=== PATIENT | male | born 1940 | race Caucasian/White ===

== ENCOUNTER 2023-06-08 08:55 | Day surgery (SDC) | payer OTHER ==
--- NOTE | 2023-06-08 12:30 | RAD REPORT ---
EXAM DESCRIPTION: US - Thoracentesis w/ US Guide - 06/08/2023 12:23 pm CLINICAL HISTORY: Pleural effusion. PE COMPARISON: No comparisons FINDINGS: Preoperative diagnosis: Right pleural effusion Post operative diagnosis: Same Conscious Sedation: None. Estimated blood loss: Minimal Specimens:A small volume of fluid was sent for requested lab studies. 1400 mL was aspirated. Imaging: Ultrasound Complications: None IMPRESSION: Successful ultrasound-guided right-sided thoracentesis as detailed.
--- NOTE | 2023-06-08 12:36 | RAD REPORT ---
EXAM DESCRIPTION: RAD - Chest Single View - 06/08/2023 12:27 pm CLINICAL HISTORY: Status Post Thorocentesis COMPARISON: Chest Pa And Lat (2 Views) dated 06/06/2023; Chest Pa And Lat (2 Views) dated 03/26/2023; Thorax Wo Con dated 10/26/2021 FINDINGS: Status post right-sided thoracentesis. Decreased right pleural fluid. There is still resid ual opacities at the right lung base. This could be physical pleural fluid, scarring, consolidation, or atelectasis. Left lung is clear. Heart size is enlarged . IMPRESSION: Status post right-sided thoracentesis. No pneumothorax. Residual right basilar opacity c ould be a combination of factors including some residual pleural fluid, scarring/atelectasis, or unde rlying consolidative process. Correlate with thoracentesis fluid including cytology.
[2023-06-08 13:30] LABS: Appearance CLEAR (CLEAR); Body Fluid Source PLEURAL; Color of fluid Yellow (COLORLESS)
[2023-06-08 13:31] LABS: Body Fluid WBC 337 /mm^3
[2023-06-08 14:56] VITALS: BP 144/75; TEMP 96.7; O2SAT 93
--- NOTE | 2023-06-08 15:30 | RAD REPORT ---
EXAM DESCRIPTION: [place] Single View06/08/2023 3:09 pm CLINICAL HISTORY: Right thoracentesis IMPRESSION: A right pneumothorax is not present status post thoracentesis
[2023-06-12 07:10] LABS: TOTAL PROTEIN, PLEURAL FLUID 5.2 g/dL
== END 2023-06-08 15:35 | disposition home or self-care (01) ==
LOC: DS 08:55
PROVIDERS: ATTEND Internal Medicine Sleep Medicine
PROC: 0W993ZX Drainage of Right Pleural Cavity, Percutaneous Approach, Diagnostic (ICD-10-PCS; principal; 2023-06-08)
DX: J90 Pleural effusion, not elsewhere classified (principal)
CPT/HCPCS: 32555; 36415; 71045; 82945; 83615; 84157; 84311; 85730; 87015; 87070; 87102; 87116; 87206; 88108; 88305; 89050

== ENCOUNTER → 2023-11-05 | Emergency (ER) | payer OTHER ==
--- NOTE | 2023-11-05 16:16 | RAD REPORT ---
EXAM DESCRIPTION: CT - Thorax Wo Con - 11/05/2023 3:38 pm CLINICAL HISTORY: sob COMPARISON: 2021 TECHNIQUE: Computed axial tomography of the chest was obtained. Contrast was not requested. All CT scans are performed using dose optimization technique as appropriate and may include automated exposure control or mA/KV adjustment according to patient size. FINDINGS: The evaluation of mediastinum, jose f and vessels is limited secondary to lack of IV contras t administration. Moderate loculated right pleural effusion with a thickened wall. Catheter enters the right lateral lower chest into the pleural fluid. It extends superiorly and anter iorly. There is little fluid adjacent to the tip of the catheter. Right lung opacities right lung volume loss is present. Left lung is clear. No mediastinal or hilar lymphadenopathy noted. Lytic lesions are present within 2 thoracic vertebral bodies unchanged from prior exam. Given the lac k of change incised these may represent hemangiomas. Further evaluation with nonemergent MRI thoracic spine could be obtained IMPRESSION: Tip of a right pleural catheter lies within the anterior superior right pleural space. T here is little fluid surrounding the tip of the catheter. Moderate loculated right pleural effusion with a thickened wall. Opacities right lower lobe probably atelectasis. Additional right lung opacities could represent pneu monia or atelectasis
--- NOTE | 2023-11-05 16:21 | RAD REPORT ---
EXAM DESCRIPTION: [place] Pa And Lat (2 Views)11/05/2023 3:27 pm CLINICAL HISTORY: Shortness of breath COMPARISON: September 2023 FINDINGS: The opacification of the right hemithorax represents a combination of loculated pleural ef fusion and atelectasis. There may be additional pneumonia present. Right lung volume loss Tip of a pleural catheter upper right hemithorax Left lung appears clear. Heart is normal size
--- NOTE | 2023-11-05 16:42 | EDPHYS ---
Physician Documentation [facility] Name: Anders Melendez Age: 83 yrs Sex: Male : 1940 Arrival Date: 11/05/2023 Time: 14:21 Bed 2 Private MD: Julio Mccrary V ED Physician Cole Cordero HPI: 11/04 15:22 This 83 yrs old Male presents to ER via Wheelchair with complaints of PleurX catheter rn problem. 15:22 The patient has shortness of breath with light activity, during heavy activity. Onset: rn The symptoms/episode began/occurred at an unknown time. The patient's shortness of breath is aggravated by exertion. Severity of symptoms: At their worst the symptoms were mild in the emergency department the symptoms are unchanged. The patient has experienced similar episodes in the past. Patient reports has had Pleurx catheter since July after diagnosed with mesothelioma and pleural effusion. Is undergoing chemo with last chemo last week. Denies any fever. Main complaint is that Pleurx catheter has not drained much in the last 2 months. Had imaging done as outpatient last week but does not know results. Reports slowly increasing short of breath over time. No hemoptysis.. Historical: - Allergies: 14:52 Codeine; kd3 - Immunization history:: Adult Immunizations up to date. - Social history:: Smoking status: Patient denies any tobacco usage or history of. - Family history:: not pertinent. - Hospitalizations: : No recent hospitalization is reported. ROS: 15:22 Constitutional: Negative for fever, chills, and weight loss, Cardiovascular: Negative rn for chest pain, palpitations, and edema, Respiratory: Positive for shortness of breath Abdomen/GI: Negative for abdominal pain, nausea, vomiting, diarrhea, and constipation, MS/Extremity: Negative for injury and deformity, Skin: Negative for injury, rash, and discoloration, Neuro: Negative for headache, weakness, numbness, tingling, and seizure, Exam: 15:22 Constitutional: This is a well developed, well nourished patient who is awake, alert, rn and in no acute distress. Head/Face: Normocephalic, atraumatic. Cardiovascular: Tachycardic, regular. No pulse deficits. Respiratory: Mild tachypnea. Speaking full sentences. Abdomen/GI: Soft, non-tender Vital Signs: 14:48 BP 112 / 62; Pulse 101; Resp 17; Temp 98.4(O); Pulse Ox 98% ; Weight 90.72 kg; kd3 17:14 BP 134 / 69; Pulse 92; Resp 18; Pulse Ox 97% on R/A; Pain 0/10; ld1 19:40 BP 110 / 58; Pulse 93; Resp 18; Pulse Ox 97% on R/A; Pain 0/10; nj1 20:32 Temp 98.2(O); nj1 17:14 Pain Scale: Adult ld1 19:40 Pain Scale: Adult nj1 MDM: 14:31 Patient medically screened. rn 16:32 Counseling: I had a detailed discussion with the patient and/or guardian regarding the rn historical points, exam findings, and any diagnostic results supporting the discharge/admit diagnosis, radiology results, the need to transfer to another facility, for higher level of care, [facility] does not immediately have the required specialist. ED course: Consulted with Dr. Roibns, states nose fluid is loculated and recommends transfer to [facility] as we cannot do anymore for this gentleman here. Patient denies fever or infectious symptoms. No new cough. Doubtful that the finding is pneumonia, most likely compressive atelectasis from effusion. Transfer to [facility] initiated. 16:39 Differential diagnosis: pneumonia, Pneumothorax loculated effusion. Data reviewed: rn vital signs, nurses notes, radiologic studies, CT scan, plain films, and as a result, I will admit patient. Consideration of Admission/Observation Patient was admitted/placed on observation. Escalation of care including admission/observation considered. 11/04 15:04 Order name: XRAY Chest Pa And Lat (2 Views); Complete Time: 16:22 rn 11/04 15:21 Order name: CT Chest Wo Con; Complete Time: 16:22 rn Administered Medications: No medications were administered Disposition Summary: 11/05/23 16:42 Transfer Ordered Notes: Transfer Location: [facility] rn Reason: Higher level of care rn Condition: Stable rn Problem: an ongoing problem rn Symptoms: have worsened rn Accepting Physician: Dr. Snowden(11/05/23 20:27) as6 Diagnosis - Pleural effusion, not elsewhere classified - Loculated rn - Dyspnea, unspecified rn Forms: - Medication Reconciliation Form rn - SBAR form rn Signatures: Dispatcher [employer] Cole Walden MD MD rn Slawson, Ashby, RN RN as6 Teresa Zuleta RN RN kd3 Corrections: (The following items were deleted from the chart) 14:53 14:52 Allergies: No Known Allergies; kd3 kd3 20:27 16:42 Dr. Snowden rn as6
--- NOTE | 2023-11-05 16:42 | ER ---
Nurse's Notes [facility] Name: Anders Melendez Age: 83 yrs Sex: Male : 1940 Arrival Date: 11/05/2023 Time: 14:21 Bed 2 Private MD: Julio Mccrary V Diagnosis: Pleural effusion, not elsewhere classified-Loculated;Dyspnea, unspecified Presentation: 11/04 14:49 Chief complaint: Patient states: I have a right pleur X catheter that will not drain. I kd3 had a CT scan done and i am not sure what that scan said. I could not get IT has been almost 2 moths since it has drained. I do not have any pain right now but i am very short of breath. I just cannot get my doctor to take care of it so i am here trying to get it taken care of. Coronavirus screen: Vaccine status: Patient reports receiving the 2nd dose of the covid vaccine. Ebola Screen: No symptoms or risks identified at this time. Initial Sepsis Screen: Does the patient meet any 2 criteria? No. Patient's initial sepsis screen is negative. Does the patient have a suspected source of infection? No. Patient's initial sepsis screen is negative. Risk Assessment: Do you want to hurt yourself or someone else? Patient reports no desire to harm self or others. Onset of symptoms was November 05, 2023. 14:49 Method Of Arrival: Wheelchair kd3 14:49 Acuity: AIMEE 3 kd3 Triage Assessment: 14:52 General: Appears in no apparent distress. Behavior is calm, cooperative. Pain: Denies kd3 pain. Historical: - Allergies: 14:52 Codeine; kd3 - Immunization history:: Adult Immunizations up to date. - Social history:: Smoking status: Patient denies any tobacco usage or history of. - Family history:: not pertinent. - Hospitalizations: : No recent hospitalization is reported. Screenin:14 [facility] ED Fall Risk Assessment (Adult) History of falling in the last 3 months, ld1 including since admission No falls in past 3 months (0 pts). Abuse screen: Denies threats or abuse. Denies injuries from another. Nutritional screening: No deficits noted. Tuberculosis screening: No symptoms or risk factors identified. Assessment: 17:14 General: Appears in no apparent distress. comfortable, Behavior is calm, cooperative, ld1 appropriate for age. Pain: Denies pain. Neuro: Level of Consciousness is awake, alert, obeys commands, Oriented to person, place, time, situation. Cardiovascular: Capillary refill < 3 seconds Patient's skin is warm and dry. Respiratory: Airway is patent Respiratory effort is even, unlabored. GI: Abdomen is round non-distended. : No signs and/or symptoms were reported regarding the genitourinary system. EENT: No signs and/or symptoms were reported regarding the EENT system. Derm: No signs and/or symptoms reported regarding the dermatologic system. Musculoskeletal: No signs and/or symptoms reported regarding the musculoskeletal system. 17:14 Reassessment: Pt reports pleural catheter being clogged. Denies Pain. ld1 19:44 Reassessment: Patient appears in no apparent distress at this time. Patient and/or nj1 family updated on plan of care and expected duration. Pain level reassessed. Patient is alert, oriented x 3, equal unlabored respirations, skin warm/dry/pink. Patient denies pain at this time. 20:22 Reassessment: EMS here to transport patient, report given to Kole MONTEMAYOR. nj1 Vital Signs: 14:48 BP 112 / 62; Pulse 101; Resp 17; Temp 98.4(O); Pulse Ox 98% ; Weight 90.72 kg; kd3 17:14 BP 134 / 69; Pulse 92; Resp 18; Pulse Ox 97% on R/A; Pain 0/10; ld1 19:40 BP 110 / 58; Pulse 93; Resp 18; Pulse Ox 97% on R/A; Pain 0/10; nj1 20:32 Temp 98.2(O); nj1 17:14 Pain Scale: Adult ld1 19:40 Pain Scale: Adult nj1 ED Course: 14:25 Patient arrived in ED. rg4 14:27 Julio Mccrary MD is Private Physician. rg4 14:30 Cole Cordero MD is Attending Physician. rn 14:52 Triage completed. kd3 14:52 Arm band placed on right wrist. kd3 15:29 XRAY Chest Pa And Lat (2 Views) In Process Unspecified. EDMS 15:40 CT Chest Wo Con In Process Unspecified. EDMS 16:46 initiated to [facility]. bd 17:14 Reba Connolly, RN is Primary Nurse. ld1 17:14 Patient has correct armband on for positive identification. Placed in gown. Bed in low ld1 position. Call light in reach. Side rails up X2. plumbing assembler installer on. Pulse ox on. NIBP on. Door closed. Noise minimized. Warm blanket given. 17:14 No provider procedures requiring assistance completed. ld1 17:16 pt accepted in transfer to [facility] by Dr Rajput admin approval given by Herlinda Hernandez. 19:44 Inserted saline lock: 22 gauge in left forearm, using aseptic technique. nj1 20:06 initiated transport to [facility] room 927 with EMS spoke with Nathaniel. vk 20:17 Provided Education on:. nj1 20:17 Patient transferred, IV remains in place. nj1 Administered Medications: No medications were administered Medication: 17:14 VIS not applicable for this client. ld1 Outcome: 16:42 ER care complete, transfer ordered by . rn 19:50 Transferred by ground EMS to [facility], Transfer form completed. Note: nj1 report called to nurse Jyoti. 19:50 Condition: stable nj1 19:50 Instructed on the need for transfer, 20:27 Patient left the ED. as6 Signatures: Dispatcher [employer] EDMS Meli Forbes Roman, MD MD rn Garcia, Rubi rg4 Reba Connolly, RN RN ld1 Michael Benson RN RN as6 Teresa Zuleta RN RN kd3 Balbina Diggs RN RN nj1 Tiffanie Tineo Corrections: (The following items were deleted from the chart) 14:53 14:52 Allergies: No Known Allergies; kd3 kd3
[2023-11-05 20:49] VITALS: BP 110/58; TEMP 98.4; O2SAT 97
== END ==
LOC: ER 14:21
DX: J90 Pleural effusion, not elsewhere classified (principal); C45.9 Mesothelioma, unspecified; Z88.5 Allergy status to narcotic agent
CPT/HCPCS: 71046; 71250